=== PATIENT | female | born 1940 | race Caucasian/White ===

== ENCOUNTER 2018-09-28 14:40 | Observation (INO) | payer MEDICARE ==
[2018-09-28] MEDS ORDERED: Acetaminophen 500 MG TAB ONE (15:14)
[2018-09-28] MEDS ORDERED: Adacel (T-DAP) 0.5 ML SYRINGE ONE (15:14)
[2018-09-28] MEDS ORDERED: Sodium Chloride 0.9% 100 ML ONE ×2 (15:34→16:20)
[2018-09-28] MEDS ORDERED: cefTRIAXone\\ROCEPHIN 2 GM VIAL ONE (15:34)
[2018-09-28 15:35] LABS: #Basophils 0.1 thou/uL (0.0-0.2); #Lymphocytes 1.4 thou/uL (1.20-3.40); #Monocytes 1.1 thou/uL (0.11-0.59); #Neutrophils 14.5 thou/uL (1.40-6.50); %Basophils 0.5 % (0.0-1.0); %Eosinophils 0.1 % (0.0-10.0); %Lymphocytes 8.1 % (21.0-51.0); %Monocytes 6.5 % (0.0-10.0); %Neutrophils 84.9 % (42.0-75.0); Hemoglobin 12.8 g/dL (12.0-16.0); Mean Corpuscular HGB CONC 33.7 g/dL (32.0-36.0); Mean Corpuscular Hemoglobin 30.1 pg (27.0-31.0); Mean Corpuscular Volume 89.1 fL (78.0-98.0); Mean Platelet Volume 8.9 fL (7.4-10.4); Platelet Count 182 thou/uL (130-400); RBC Distribution Width 12.3 % (11.5-14.5); Red Blood Cell (RBC) Count 4.25 mill/uL (4.20-5.40); White Blood Cell (WBC) Count 17.1 thou/uL (4.8-10.8)
[2018-09-28 15:48] LABS: ALT (SGPT) 18 U/L (8-55); AST (SGOT) 24 U/L (5-34); Albumin 4.1 g/dL (3.4-4.8); Alkaline Phosphatase 69 U/L (40-150); Anion Gap 12 mmol/L (10-20); BUN (Urea Nitrogen) 17 mg/dL (9.8-20.1); Bilirubin, Total 0.8 mg/dL (0.2-1.2); Calc. Creatinine Clearance 0 mL/min (70-130); Calcium 9.6 mg/dL (7.8-10.44); Carbon Dioxide 27 mmol/L (23-31); Chloride 102 mmol/L (98-107); Estimated GFR-MDRD 64; Globulin 3.6 g/dL (2.4-3.5); Glucose 101 mg/dL (83-110); Potassium 3.4 mmol/L (3.5-5.1); Protein, Total 7.7 g/dL (6.0-8.3); Sodium 138 mmol/L (136-145)
--- NOTE | 2018-09-28 15:58 | RAD ---
FRadiograph chest one view: 09/28/2018 HISTORY: 77-year-old female with fever and chills COMPARISON: 07/21/2015. Previously, there was a focal infiltrate representing pneumonia at the medial right lung base. Curren tly, there is an area of increased attenuation, but this is much smaller. In the right upper lobe, there is a broad region of increased nodular interstitial densities. No card iomegaly or pulmonary edema. No pneumothorax. IMPRESSION: 1. Small area of increased density at the medial base of the right lung. This could represent chronic changes or recurrent early infiltrate. 2. Region at right upper lobe appears similar to 2016 study, representing chronic or recurrent subacu te pulmonary process.
[2018-09-28 16:15] LABS: Bilirubin Negative (Negative); Blood, Urine Moderate (Negative); Clarity Hazy (Clear); Glucose, Urine (Dipstick) Negative (Negative); Leukocyte Trace (Negative); Nitrite Negative (Negative); Protein, Urine (Dipstick) 100 mg/dL (Neg-Trace); Specific Gravity, Urine 1.025 (1.005-1.030); Urobilinogen 0.2 mg/dL (0.2-1.0); WBC/HPF 0-3 HPF (0-3); pH, Urine 5.5 (5.0-9.0)
[2018-09-28 16:16] LABS: Bacteria/HPF 2+ HPF (None Seen)
[2018-09-28] MEDS ORDERED: Azithromycin 500 MG VIAL ONE ×2 (16:19→16:29)
[2018-09-28] MEDS ORDERED: HYDROcodone/Acetaminophen 5/325 mg Tablet PO PRN ×2 (18:13)
[2018-09-28] MEDS ORDERED: Acetaminophen 325 MG TAB PO PRN (18:13)
[2018-09-29] MEDS ORDERED: Acetaminophen 650 MG Suppository PR PRN (02:37)
[2018-09-29] MEDS ORDERED: Ondansetron ODT 4 MG TAB PO PRN (02:37)
[2018-09-29 03:14] LABS: #Basophils 0.1 thou/uL (0.0-0.2); #Eosinphils 0.1 thou/uL (0.0-0.7); #Lymphocytes 1.6 thou/uL (1.20-3.40); #Monocytes 1.1 thou/uL (0.11-0.59); #Neutrophils 6.5 thou/uL (1.40-6.50); %Basophils 0.7 % (0.0-1.0); %Eosinophils 0.7 % (0.0-10.0); %Lymphocytes 17.1 % (21.0-51.0); %Monocytes 11.5 % (0.0-10.0); Hemoglobin 11.3 g/dL (12.0-16.0); Mean Corpuscular HGB CONC 33.3 g/dL (32.0-36.0); Mean Corpuscular Hemoglobin 30.8 pg (27.0-31.0); Mean Corpuscular Volume 92.5 fL (78.0-98.0); Mean Platelet Volume 8.5 fL (7.4-10.4); Platelet Count 154 thou/uL (130-400); RBC Distribution Width 12.5 % (11.5-14.5); Red Blood Cell (RBC) Count 3.67 mill/uL (4.20-5.40); White Blood Cell (WBC) Count 9.3 thou/uL (4.8-10.8)
[2018-09-29] MEDS ORDERED: Potassium Chloride 20 MEQ TAB PO SCH ×2 (03:15)
[2018-09-29 03:31] LABS: Anion Gap 12 mmol/L (10-20); BUN (Urea Nitrogen) 17 mg/dL (9.8-20.1); CK (CPK) 62 U/L (29-168); Calc. Creatinine Clearance 52 mL/min (70-130); Calcium 8.3 mg/dL (7.8-10.44); Carbon Dioxide 25 mmol/L (23-31); Chloride 106 mmol/L (98-107); Estimated GFR-MDRD 75; Glucose 90 mg/dL (83-110); Sodium 140 mmol/L (136-145)
[2018-09-29] MEDS: Sodium Chloride 0.9% 1,000 ML IV SCH (03:39)
--- NOTE | 2018-09-29 04:08 | HP ---
REASON FOR ADMISSION: Left leg cellulitis, secondary to cat bite. HISTORY OF PRESENT ILLNESS: Ms. Yepez is a very pleasant 77-year-old lady, who has a history of hypertension, presenting with left lower leg pain, swelling, and chills. She states that yesterday evening, she was bit by her cat in the left lower leg. She had pain that eventually subsided. By the time she went to bed, she began to feel generally unwell and fatigued. Throughout the night, she began to experience chills. This morning, she woke up feeling feverish and sought medical attention due to redness and pain in the leg. She states her cat is up-to-date on all her vaccinations. Due to unknown date of last tetanus, the patient received tetanus booster in the ED. She was started on IV antibiotics with Zithromax and ceftriaxone. She was also given 1 L of fluids. Since starting on the antibiotics, the patient states she notices she is starting to feel much better. She is less fatigued and drained. She is no longer experiencing generalized aching. The patient states that in addition to having chills and being unable to sleep because of feeling generally unwell last night, she also experienced urinary frequency. Urinalysis positive for leukocyte esterase and bacteria. We will request urine culture. REVIEW OF SYSTEMS: The patient denies having any headaches or dizziness. Denies having any nausea or vomiting. She has been tolerating oral intake. No abdominal pain or cramping. No urinary symptoms. She has not had any recent cough or hemoptysis. All other review of systems is negative. PAST MEDICAL HISTORY: Hypertension. PAST SURGICAL HISTORY: Bladder surgery. SOCIAL HISTORY: The patient denies any alcohol use, tobacco use, or illicit drug use. ALLERGIES: SULFA. CURRENT MEDICATIONS: Please . PHYSICAL EXAMINATION: GENERAL: The patient appears thin, well-developed, and in no acute distress. VITAL SIGNS: Temperature 97.9, pulse 72, respirations 18, blood pressure 136/60, and O2 saturation 96% on room air. HEENT: Normocephalic and atraumatic. Pupils are equal, round, and reactive to light. Sclerae are without icterus. Oropharynx is clear. NECK: Supple without lymphadenopathy. LUNGS: Clear to auscultation bilaterally without wheezes, rales, or rhonchi. CARDIAC: Regular rate and rhythm without audible murmurs, rubs, or gallops. ABDOMEN: Soft, nontender, nondistended. Normoactive bowel sounds present. EXTREMITIES: Notable for warm to right lower extremity. No significant swelling or erythema; however, she does have small patches of dry erythematous skin associated with her eczema. The patient states there has been improvement in erythema that was associated with the cellulitis since starting antibiotics. There is a puncture wound to the medial aspect of the lower leg at the mid calf region. No active bleeding or discharge. Normal range of motion in her ankle and knee. Slight tenderness and edema. NEUROLOGIC: Alert and oriented x3. LABORATORY DATA: White blood count elevated at 17.1, hemoglobin 12.8, hematocrit 37.9, platelets 182, neutrophils 14.5, and monocytes 1.1. Sodium 138, potassium 3.4, chloride 102, BUN 17, creatinine 0.86, GFR 64, glucose 101, lactic acid 0.7, calcium 9.6, total bilirubin 0.8, AST 24, ALT 18, alkaline phosphatase 69, and total protein 7.7. Urinalysis notable for 100 protein, trace ketones, moderate blood, leukocyte esterase, squamous epithelial cells, urine bacteria. DIAGNOSTIC DATA: Chest x-ray; 1. Small area of increased density at the medial base of the right lung. Could represent chronic changes of recurrent early infiltrate. 2. Region of the right upper lobe appears similar to 2016 study representing chronic recurrence of acute pulmonary process. IMPRESSION AND PLAN: Ms. Yepez is a very pleasant 77-year-old woman presenting with redness, pain, and swelling to the left lower leg following a cat bite. The patient has received tetanus booster and has been started on Zithromax as well as Rocephin. Following discussion with Dr. Aceves, we have decided to continue Rocephin and switch to vancomycin. I have also requested a tib-fib x-ray to rule out osteomyelitis. The patient is still quite tender to the area on palpation. She does, however, have notable clinical improvement with less generalized aching and malaise. She remains afebrile. Initial white count was elevated at 17, and we will continue to monitor. Lactic acid was normal. The patient did have a positive urinalysis for leukocyte esterase, no nitrites, 2+ bacteria. We will request urine culture. The patient did have blood cultures requested, which are pending. At this time, her pain is well controlled. She does have hypertension at baseline, and we will continue to monitor her blood pressure, which on admission was on the lower side at 97/52. Currently, it is 136/60. I will continue to monitor and if begins to rise, we will resume her home medications. Home medications still need to be verified and then reconciled. The patient is a full code status. Her surrogate decision maker is her daughter, Pretty Man. At present time, the patient is very eager to find out estimated length of stay as she has a home day care and would need to notify the parents if she will not be able to take care of the children on Sunday. The patient's case was discussed with Dr. Aceves, who agrees with plan of care as described above. Job ID: [id number]
--- NOTE | 2018-09-29 08:24 | RAD ---
FRadiograph left leg tibia-fibula 2 views: HISTORY: Cellulitis due to cat bite. Rule out osteomyelitis. FINDINGS: There is no evidence of periostitis, permeative lesion, fracture, radiopaque foreign body, or subcuta neous emphysema involving the tibia or fibula. IMPRESSION: Negative
[2018-09-29] MEDS: Famotidine 20 MG TAB PO SCH (08:55)
[2018-09-29] MEDS: Vancomycin HCl 1 GM in Premix Bag 1 BAG IVPB SCH (08:55)
[2018-09-29] MEDS: cefTRIAXone\\ROCEPHIN 1 GM in Sodium Chloride 0.9% 100 ML IVPB SCH (16:12)
[2018-09-30] MEDS: Sodium Chloride 0.9% 1,000 ML IV SCH (00:24)
[2018-09-30] MEDS: Vancomycin HCl 1 GM in Premix Bag 1 BAG IVPB SCH (08:06)
[2018-09-30] MEDS: Famotidine 20 MG TAB PO SCH (08:07)
[2018-09-30 10:47] VITALS: BMI 19.9
[2018-09-30 13:14] VITALS: BP 145/72; TEMP 97.7
[2018-09-30] MEDS: cefTRIAXone\\ROCEPHIN 1 GM in Sodium Chloride 0.9% 100 ML IVPB SCH (15:57)
--- NOTE | 2018-09-30 17:04 | DIS ---
DATE OF ADMISSION: 09/28/2018 DATE OF DISCHARGE: 09/30/2018 DISCHARGE DISPOSITION: Home. Follow up with primary care physician, Lawanda Dixon in 1 week. HISTORY: The patient was seen and examined on the day of discharge. Denies any new complaint. No chest pain, shortness of breath, or palpitations. DISCHARGE MEDICATIONS: 1. Augmentin 875 mg twice daily for next 5 days. 2. All other home medications were left unchanged. ALLERGIES: THE PATIENT IS ALLERGIC TO SULFA. BRIEF HOSPITAL COURSE: The patient is a 77-year-old white female with hypertension, presented to the hospital with left lower extremity pain, swelling, and chills after bitten by her cat. Please refer to the history and physical for further details. The patient was admitted to the hospital with a diagnosis of cellulitis after a cat bite. She was started on broad-spectrum antibiotics. She also received a tetanus shot in the emergency room. X-ray of the tibia-fibula was negative for acute findings. The patient has been afebrile throughout this hospital stay. The antibiotics will be switched to oral. A WBC count on admission was 17.1, that improved to 9.3 with antibiotics. She also had hypokalemia with potassium of 3.4 and 3.0. She received potassium supplementation. There were no labs ordered on the day of discharge. She will benefit from a basic metabolic profile next week. She appears stable for discharge. Erythema and tenderness have significantly improved. FINAL DIAGNOSES: 1. Left lower extremity cellulitis following a cat bite. 2. Hypertension. 3. Hypokalemia, replaced. 4. Chronic kidney disease stage 2. 5. Leukocytosis secondary to left lower extremity cellulitis following a cat bite, improved. PLAN: Plan of care was discussed with the patient in detail. She stated understanding. Job ID: [id number]
== END 2018-09-30 17:29 | disposition home or self-care (01) ==
LOC: SCSER 14:40 → T4-B 17:51
PROVIDERS: ADMIT Internal Medicine; ATTEND Internal Medicine
DX: S81.852A Open bite, left lower leg, initial encounter (principal); L03.116 Cellulitis of left lower limb; I12.9 Hypertensive chronic kidney disease with stage 1 through stage 4 chronic kidney disease, or unspecified chronic kidney disease; N18.2 Chronic kidney disease, stage 2 (mild); E87.6 Hypokalemia; Z79.810 Long term (current) use of selective estrogen receptor modulators (SERMs); Z79.899 Other long term (current) drug therapy; Z88.2 Allergy status to sulfonamides; W55.01XA Bitten by cat, initial encounter
CPT/HCPCS: 71045; 73590; 80048; 80053; 82550; 83605; 85025 ×2; 87040; 90471; 90715; 96361 ×2; 96365; 96366; 96367 ×2; 99285; G0378 ×2; 36415; 81003; 81015; J0456; J0696; J3370; J7050

== ENCOUNTER 2020-06-12 08:30 | Emergency (ER) | payer MEDICARE ==
[2020-06-12] MEDS ORDERED: Famotidine/PF 20 mg/2ml Vial ONE (08:49)
[2020-06-12] MEDS ORDERED: methylPREDNISolone Sod Succ/PF 125 MG/2 ML VIAL ONE (08:49)
[2020-06-12] MEDS ORDERED: diphenhydrAMINE 50 MG/ML VIAL ONE (08:57)
--- NOTE | 2020-06-12 10:26 | CT ---
CT OF BRAIN PERFORMED WITHOUT CONTRAST ENHANCEMENT: HISTORY: The patient has a history of hypertension. Noted swelling to jaw and tongue region. FINDINGS: There is generalized ventricular and sulcal prominence with decreased attenuation to the periventricu lar white matter. There are no signs of intracerebral hemorrhage or extraaxial fluid collections. Mastoid air cells are clear. There is complete opacification of the left sphenoid air cells and comp lete opacification of the visualized portions of the ethmoid air cells. IMPRESSION: 1. Atrophy with chronic white matter change. 2. Extensive sinus disease. POS: ALEXA
[2020-06-12 16:32] LABS: SARS-CoV-2 MS2 Positive; SARS-CoV-2 N Gene Negative; SARS-CoV-2 S Gene Negative; SARS-CoV-2 by NAA Not Detected (NotDetected); SARS-CoV-2 orf1ab Negative
== END 2020-06-12 10:25 | disposition home or self-care (01) ==
LOC: ERS 08:30
DX: T78.3XXA Angioneurotic edema, initial encounter (principal); T46.4X5A Adverse effect of angiotensin-converting-enzyme inhibitors, initial encounter; I10 Essential (primary) hypertension; Z79.899 Other long term (current) drug therapy
CPT/HCPCS: 70450; 96374; 96375; 99284; U0003; 87635; J1200; J2930; S0028

== ENCOUNTER 2021-12-09 12:57 | Outpatient (CLI) | payer MEDICARE ==
[~2021-12-09 12:57] MED LIST: Iopamidol 370 76% 100 ML VIAL ONE
== END 2021-12-09 12:58 | disposition home or self-care (01) ==
LOC: BICCT 12:57
PROVIDERS: ATTEND Internal Medicine Hematology & Oncology
DX: C18.3 Malignant neoplasm of hepatic flexure (principal)
CPT/HCPCS: 71260; Q9967

== ENCOUNTER 2021-12-14 07:31 | Observation (INO) | payer MEDICARE ==
[2021-12-14 08:08] LABS: #Monocytes 0.8 thou/uL (0.11-0.59); #Neutrophils 4.4 thou/uL (1.40-6.50); %Basophils 0.5 % (0.0-1.0); %Eosinophils 0.7 % (0.0-10.0); %Lymphocytes 15.8 % (21.0-51.0); %Monocytes 13.2 % (0.0-10.0); %Neutrophils 69.8 % (42.0-75.0); Hemoglobin 10.2 g/dL (12.0-16.0); Mean Corpuscular HGB CONC 32.3 g/dL (32.0-36.0); Mean Corpuscular Hemoglobin 25.8 pg (27.0-31.0); Mean Platelet Volume 8.3 fL (7.4-10.4); Platelet Count 316 thou/uL (130-400); RBC Distribution Width 15.2 % (11.5-14.5); Red Blood Cell (RBC) Count 3.96 mill/uL (4.20-5.40); White Blood Cell (WBC) Count 6.3 thou/uL (4.8-10.8)
[2021-12-14 08:29] LABS: ALT (SGPT) 16 U/L (8-55); AST (SGOT) 19 U/L (5-34); Albumin 3.5 g/dL (3.4-4.8); Alkaline Phosphatase 64 U/L (40-110); Anion Gap 16 mmol/L (10-20); BUN (Urea Nitrogen) 36 mg/dL (9.8-20.1); Bilirubin, Total 0.5 mg/dL (0.2-1.2); Calc. Creatinine Clearance 0 mL/min (70-130); Calcium 8.8 mg/dL (7.8-10.44); Carbon Dioxide 27 mmol/L (23-31); Chloride 101 mmol/L (98-107); Globulin 3.4 g/dL (2.4-3.5); Glucose 113 mg/dL (83-110); Protein, Total 6.9 g/dL (5.8-8.1); Sodium 141 mmol/L (136-145)
[2021-12-14] MEDS ORDERED: Morphine 4 MG/ML VIAL ONE (10:18)
[2021-12-14] MEDS ORDERED: Potassium Chloride 20 MEQ TAB ONE (10:18)
[2021-12-14] MEDS ORDERED: Ondansetron PF 4 MG/2 ML Vial ONE (10:26)
[2021-12-14 10:27] LABS: Bilirubin Negative (Negative); Blood, Urine Negative (Negative); Glucose, Urine (Dipstick) Normal (Negative); Ketone, Urine Negative (Negative); Leukocyte 75 Leu/uL (Negative); Nitrite Negative (Negative); Protein, Urine (Dipstick) 20 mg/dL (Neg-Trace); RBC/HPF 0-3 HPF (0-3); Specific Gravity, Urine 1.021 (1.002-1.036); Squamous Epithelial 0-3 HPF (0-3); Urobilinogen Normal mg/dL (Less than 2); pH, Urine 5.5 (5.0-9.0)
[2021-12-14 10:28] LABS: Bacteria/HPF 1+ HPF (None Seen); Clarity Cloudy (Clear)
[2021-12-14 15:16] VITALS: BMI 17.9
[2021-12-14] MEDS ORDERED: NS 0.9% w/ 40 MEQ KCL 1,000 ML IV SCH (15:30)
[2021-12-14 18:53] LABS: SARS-CoV-2 NAA Rapid Test Not Detected (NotDetected)
[2021-12-14] MEDS ORDERED: traMADol HCl 50 MG TAB PO PRN (19:10)
[2021-12-14] MEDS ORDERED: hydrALAZINE 20 MG/ML VIAL SLOW IVP PRN (19:10)
[2021-12-14] MEDS ORDERED: Potassium Chloride 20 MEQ TAB PO SCH (19:15)
[2021-12-14] MEDS ORDERED: Lactated Ringer's 500 ML IV SCH (19:15)
[2021-12-14] MEDS ORDERED: Famotidine 20 MG TAB PO SCH (21:00)
[2021-12-14] MEDS ORDERED: Enoxaparin Sodium 30 MG/0.3 ML SYRINGE SC SCH (21:00)
[2021-12-14] MEDS: Citrucel 500 MG TAB PO SCH (21:11)
[2021-12-14] MEDS: Potassium Chloride 20 MEQ in Lactated Ringer's 1,000 ML IV SCH (22:51)
[2021-12-15] MEDS: Potassium Chloride 20 MEQ in Lactated Ringer's 1,000 ML IV SCH (05:00)
[2021-12-15 05:43] LABS: #Eosinphils 0.1 thou/uL (0.0-0.7); #Lymphocytes 1.1 thou/uL (1.20-3.40); #Monocytes 0.7 thou/uL (0.11-0.59); #Neutrophils 2.7 thou/uL (1.40-6.50); %Basophils 0.4 % (0.0-1.0); %Eosinophils 1.6 % (0.0-10.0); %Lymphocytes 24.2 % (21.0-51.0); %Monocytes 14.9 % (0.0-10.0); %Neutrophils 58.9 % (42.0-75.0); Hemoglobin 8.8 g/dL (12.0-16.0); Mean Corpuscular Hemoglobin 25.6 pg (27.0-31.0); Mean Corpuscular Volume 82.6 fL (78.0-98.0); Mean Platelet Volume 8.6 fL (7.4-10.4); Platelet Count 227 thou/uL (130-400); RBC Distribution Width 15.3 % (11.5-14.5); Red Blood Cell (RBC) Count 3.46 mill/uL (4.20-5.40); White Blood Cell (WBC) Count 4.6 thou/uL (4.8-10.8)
[2021-12-15 08:08] LABS: Calcium 8.4 mg/dL (7.8-10.44); Chloride 108 mmol/L (98-107); Sodium 139 mmol/L (136-145)
[2021-12-15 08:09] LABS: Glucose 83 mg/dL (83-110)
[2021-12-15 08:10] LABS: Anion Gap 12 mmol/L (10-20); Carbon Dioxide 24 mmol/L (23-31)
[2021-12-15 08:13] LABS: BUN (Urea Nitrogen) 16 mg/dL (9.8-20.1)
[2021-12-15] MEDS: Citrucel 500 MG TAB PO SCH (08:27)
[2021-12-15 08:29] LABS: Calc. Creatinine Clearance 39 mL/min (70-130); Potassium 4.9 mmol/L (3.5-5.1)
[2021-12-15] MEDS ORDERED: Saccharomyces boulardii 250 MG CAP PO SCH (09:00)
[2021-12-15] MEDS ORDERED: Propranolol HCl LA 80 MG CAP PO SCH (09:00)
[2021-12-15] MEDS ORDERED: Amlodipine 10 MG TAB PO SCH (09:00)
[2021-12-15 11:35] VITALS: BP 125/67; TEMP 98.2
[2021-12-15] MEDS ORDERED: Vancomycin 25 MG/ML Oral SOLN PO SCH (12:00)
== END 2021-12-15 15:57 | disposition home or self-care (01) ==
LOC: ERS 07:31 → T4-B 14:37
PROVIDERS: ADMIT Specialist; ATTEND Specialist
DX: A04.72 Enterocolitis due to Clostridium difficile, not specified as recurrent (principal); E87.6 Hypokalemia; E86.0 Dehydration; I12.9 Hypertensive chronic kidney disease with stage 1 through stage 4 chronic kidney disease, or unspecified chronic kidney disease; N18.9 Chronic kidney disease, unspecified; N17.9 Acute kidney failure, unspecified; Z79.810 Long term (current) use of selective estrogen receptor modulators (SERMs); Z79.899 Other long term (current) drug therapy; Z88.2 Allergy status to sulfonamides; Z90.49 Acquired absence of other specified parts of digestive tract; Z20.822 Contact with and (suspected) exposure to COVID-19
CPT/HCPCS: 74176; 80048; 80053; 83690; 85025 ×2; 87324; 87449; 93005; U0002; 36415; 81003; 81015; 96372; G0378; J1650; J2270; J2405; J3480; J7120

== ENCOUNTER 2022-08-18 09:48 | Emergency (ER) | payer MEDICARE, OTHER ==
[2022-08-18 10:36] LABS: #Eosinphils 0.1 thou/uL (0.0-0.7); #Lymphocytes 1.6 thou/uL (1.20-3.40); #Monocytes 0.6 thou/uL (0.11-0.59); #Neutrophils 8.3 thou/uL (1.40-6.50); %Basophils 0.4 % (0.0-1.0); %Eosinophils 0.8 % (0.0-10.0); %Lymphocytes 15.4 % (21.0-51.0); %Monocytes 5.4 % (0.0-10.0); Hemoglobin 14.6 g/dL (12.0-16.0); Mean Corpuscular HGB CONC 33.4 g/dL (32.0-36.0); Mean Corpuscular Hemoglobin 30.2 pg (27.0-31.0); Mean Corpuscular Volume 90.3 fl (78.0-98.0); Mean Platelet Volume 9.2 fL (7.4-10.4); Platelet Count 208 10x3/uL (130-400); RBC Distribution Width 13.4 % (11.5-14.5); Red Blood Cell (RBC) Count 4.83 mill/uL (4.20-5.40); White Blood Cell (WBC) Count 10.6 10x3/uL (4.8-10.8)
[2022-08-18 10:39] LABS: Bacteria/HPF None Seen HPF (None Seen); Bilirubin Negative (Negative); Blood, Urine Trace (Negative); Clarity Clear (Clear); Glucose, Urine (Dipstick) Normal (Negative); Ketone, Urine Negative (Negative); Leukocyte Negative Leu/uL (Negative); Nitrite Negative (Negative); Protein, Urine (Dipstick) 200 mg/dL (Neg-Trace); RBC/HPF 0-3 HPF (0-3); Specific Gravity, Urine 1.015 (1.002-1.036); Squamous Epithelial 0-3 HPF (0-3); Urobilinogen Normal mg/dL (Less than 2); pH, Urine 6.5 (5.0-9.0)
[2022-08-18 10:59] LABS: ALT (SGPT) 21 U/L (8-55); AST (SGOT) 31 U/L (5-34); Albumin 4.2 g/dL (3.4-4.8); Alkaline Phosphatase 86 U/L (40-110); Anion Gap 16 mmol/L (10-20); BUN (Urea Nitrogen) 33 mg/dL (9.8-20.1); Bilirubin, Total 0.6 mg/dL (0.2-1.2); Calc. Creatinine Clearance 0 mL/min (70-130); Calcium 10.3 mg/dL (7.8-10.44); Carbon Dioxide 24 mmol/L (23-31); Chloride 101 mmol/L (98-107); Estimated GFR 51; Globulin 4.6 g/dL (2.4-3.5); Glucose 127 mg/dL (83-110); Potassium 4.3 mmol/L (3.5-5.1); Protein, Total 8.8 g/dL (5.8-8.1); Sodium 137 mmol/L (136-145)
[2022-08-18] MEDS ORDERED: cefTRIAXone\\ROCEPHIN 1 GM VIAL ONE (12:52)
[2022-08-18 13:45] LABS: SARS-CoV-2 NAA Rapid Test Not Detected (NotDetected)
== END 2022-08-18 14:00 | disposition home or self-care (01) ==
LOC: ERS 09:48
DX: N39.0 Urinary tract infection, site not specified (principal); I10 Essential (primary) hypertension
CPT/HCPCS: 80053; 83605; 84484; 85025; 87040; 87086; 93005; 96361; 96374; 99284; U0002; 36415; 81003; 81015; J0696

== ENCOUNTER 2023-04-25 18:38 | Inpatient (IN) | payer MEDICARE ==
[2023-04-25] MEDS ORDERED: Morphine 4 MG/ML VIAL ONE (19:36)
[2023-04-25] MEDS ORDERED: Ondansetron PF 4 MG/2 ML Vial ONE (19:37)
[2023-04-25 19:50] LABS: Bilirubin Negative (Negative); Blood, Urine 1+ (Negative); CAUTI Indications for Culture Pelvic or flank pain; Clarity Clear (Clear); Glucose, Urine (Dipstick) 100 mg/dL (Negative); Ketone, Urine Negative (Negative); Leukocyte Negative Leu/uL (Negative); Nitrite Negative (Negative); Protein, Urine (Dipstick) 50 mg/dL (Neg-Trace); Specific Gravity, Urine 1.016 (1.002-1.036); Squamous Epithelial 0-3 HPF (0-3); Urobilinogen Normal mg/dL (Less than 2); WBC/HPF 0-3 HPF (0-3); Yeast-Budding Rare HPF (None Seen)
[2023-04-25 19:53] LABS: #Eosinphils 0.1 thou/uL (0.0-0.7); #Monocytes 0.7 thou/uL (0.11-0.59); #Neutrophils 13.2 thou/uL (1.40-6.50); %Basophils 0.3 % (0.0-1.0); %Eosinophils 0.5 % (0.0-10.0); %Lymphocytes 7.2 % (21.0-51.0); %Monocytes 4.8 % (0.0-10.0); %Neutrophils 86.5 % (42.0-75.0); Mean Corpuscular HGB CONC 34.1 g/dL (32.0-36.0); Mean Corpuscular Volume 90.9 fl (78.0-98.0); Mean Platelet Volume 11.5 fL (7.4-10.4); Platelet Count 216 10x3/uL (130-400); RBC Distribution Width 13.1 % (11.5-14.5); Red Blood Cell (RBC) Count 4.51 mill/uL (4.20-5.40); White Blood Cell (WBC) Count 15.2 10x3/uL (4.8-10.8)
[2023-04-25 20:00] LABS: Bacteria/HPF Rare-Few HPF (None Seen)
[2023-04-25 20:01] LABS: Urine Culture Reflex No No
[2023-04-25 20:04] LABS: PTT 30.1 sec (22.9-36.1); Prothrombin Time 13.1 sec (12.0-14.7)
[2023-04-25 20:21] LABS: ALT (SGPT) 24 U/L (8-55); AST (SGOT) 34 U/L (5-34); Albumin 4.5 g/dL (3.4-4.8); Alkaline Phosphatase 84 U/L (40-110); Anion Gap 15 mmol/L (10-20); BUN (Urea Nitrogen) 41 mg/dL (9.8-20.1); Bilirubin, Total 0.2 mg/dL (0.2-1.2); Calc. Creatinine Clearance 0 mL/min (70-130); Calcium 9.9 mg/dL (7.8-10.44); Carbon Dioxide 27 mmol/L (23-31); Chloride 103 mmol/L (98-107); Estimated GFR 39; Globulin 4.1 g/dL (2.4-3.5); Glucose 157 mg/dL (83-110); Potassium 3.9 mmol/L (3.5-5.1); Protein, Total 8.6 g/dL (5.8-8.1); Sodium 141 mmol/L (136-145)
[2023-04-25] MEDS ORDERED: Morphine 4 MG/ML VIAL SLOW IVP PRN (20:42)
[2023-04-25] MEDS ORDERED: Ondansetron PF 4 MG/2 ML Vial IVP PRN (20:45)
[2023-04-25] MEDS ORDERED: Ondansetron ODT 4 MG TAB SL PRN (20:45)
[2023-04-25] MEDS ORDERED: Ipratropium/Albuterol 3 ML NEB NEB PRN (22:26)
[2023-04-25] MEDS ORDERED: traMADol HCl 50 MG TAB PO PRN (22:31)
[2023-04-25] MEDS ORDERED: Cyclobenzaprine 10 MG TAB PO PRN (22:31)
[2023-04-25] MEDS ORDERED: Acetaminophen 325 MG TAB PO SCH (22:45)
[2023-04-25] MEDS: D5 1/2 NS w/20 mEq KCL 1,000 ML IV SCH (23:38)
[2023-04-25 23:45] VITALS: BMI 19.6
[2023-04-25] MEDS ORDERED: Acetaminophen 500 MG TAB PO SCH (23:59)
[2023-04-25] MEDS ORDERED: traMADol HCl 50 MG TAB PO SCH (23:59)
[2023-04-26] MEDS: Acetaminophen/Codeine 30-300mg Tablet PO SCH ×5 (00:07→22:37)
[2023-04-26] MEDS: Acetaminophen 325 MG TAB PO SCH ×5 (00:07→23:33)
[2023-04-26] MEDS: Sodium Chloride 0.9% 1,000 ML IV SCH ×4 (00:08→23:33)
[2023-04-26] MEDS: D5 1/2 NS w/20 mEq KCL 1,000 ML IV SCH (05:10)
[2023-04-26 05:41] LABS: #Eosinphils 0.2 thou/uL (0.0-0.7); #Monocytes 0.8 thou/uL (0.11-0.59); #Neutrophils 10.4 thou/uL (1.40-6.50); %Basophils 0.2 % (0.0-1.0); %Lymphocytes 6.6 % (21.0-51.0); %Monocytes 6.4 % (0.0-10.0); %Neutrophils 84.3 % (42.0-75.0); Hematocrit 35.8 % (36.0-47.0); Hemoglobin 12.1 g/dL (12.0-16.0); Mean Corpuscular HGB CONC 33.8 g/dL (32.0-36.0); Mean Corpuscular Hemoglobin 31.3 pg (27.0-31.0); Mean Corpuscular Volume 92.7 fl (78.0-98.0); Mean Platelet Volume 11.8 fL (7.4-10.4); Platelet Count 152 10x3/uL (130-400); RBC Distribution Width 13.4 % (11.5-14.5); Red Blood Cell (RBC) Count 3.86 mill/uL (4.20-5.40); White Blood Cell (WBC) Count 12.3 10x3/uL (4.8-10.8)
[2023-04-26 05:54] LABS: INR-International Normal Ratio 1.1; PTT 32.6 sec (22.9-36.1); Prothrombin Time 14.1 sec (12.0-14.7)
[2023-04-26 06:05] LABS: Anion Gap 11 mmol/L (10-20); BUN (Urea Nitrogen) 28 mg/dL (9.8-20.1); Calc. Creatinine Clearance 39 mL/min (70-130); Calcium 8.9 mg/dL (7.8-10.44); Carbon Dioxide 24 mmol/L (23-31); Chloride 107 mmol/L (98-107); Estimated GFR 61; Glucose 112 mg/dL (83-110); Potassium 3.8 mmol/L (3.5-5.1); Sodium 138 mmol/L (136-145)
[2023-04-26] MEDS ORDERED: CEFAZOLIN 2 GM in Sodium Chloride 0.9% 100 ML IVPB SCH (07:45)
[2023-04-26] MEDS: Famotidine/PF 20 mg/2ml Vial SLOW IVP SCH (08:15)
[2023-04-26] MEDS: Amlodipine 10 MG TAB PO SCH (08:15)
[2023-04-26] MEDS: Polyethylene Glycol 3350 17 GM Packet PO SCH (08:15)
[2023-04-26] MEDS: Senokot S 8.6-50 MG TAB PO SCH ×2 (08:15→22:16)
[2023-04-26] MEDS ORDERED: Famotidine/PF 20 mg/2ml Vial SLOW IVP SCH (09:00)
[2023-04-26] MEDS ORDERED: Sodium Chloride 0.9% 100 ML ONE (18:20)
[2023-04-26] MEDS ORDERED: CEFAZOLIN 2 GM VIAL ONE (18:20)
[2023-04-26] MEDS ORDERED: fentaNYL 50 mcg/mL 1 mL Vial ONE ×3 (18:26→20:33)
[2023-04-26] MEDS ORDERED: Famotidine/PF 20 mg/2ml Vial ONE ×2 (18:26→20:30)
[2023-04-26] MEDS ORDERED: Vasopressin 20 UNITS/ML VIAL ONE (18:26)
[2023-04-26] MEDS ORDERED: Lidocaine 1% PF 5 ML VIAL ONE (18:46)
[2023-04-26] MEDS ORDERED: Rocuronium Bromide 10 MG/ML (10ML VIAL) ONE (18:46)
[2023-04-26] MEDS ORDERED: PROPOFOL 200 MG/20 ML VIAL ONE (18:46)
[2023-04-26] MEDS ORDERED: Ketorolac Tromethamine 30 MG/ML VIAL ONE (18:46)
[2023-04-26] MEDS ORDERED: Dexamethasone 20 MG/5 ML VIAL ONE (18:46)
[2023-04-26] MEDS ORDERED: NEOSTIGMINE 3 MG/3 ML SYR 3 MG/3 ML SYRINGE ONE (18:46)
[2023-04-26] MEDS ORDERED: Ondansetron PF 4 MG/2 ML Vial ONE ×2 (18:46→20:09)
[2023-04-26] MEDS ORDERED: Glycopyrrolate 0.2 MG/ML 5 ML SYRINGE ONE (18:46)
[2023-04-26] MEDS ORDERED: Promethazine HCl 25 MG/ML VIAL IM PRN (19:44)
[2023-04-26] MEDS ORDERED: Ondansetron HCl/PF 4 MG/2 ML Vial IVP PRN (19:44)
[2023-04-26] MEDS ORDERED: diphenhydrAMINE 50 MG/ML VIAL ONE (20:54)
[2023-04-26] MEDS: CEFAZOLIN 2 GM in Sodium Chloride 0.9% 100 ML IVPB SCH (23:32)
[2023-04-27] MEDS: Acetaminophen 325 MG TAB PO SCH ×3 (05:50→17:13)
[2023-04-27] MEDS: Acetaminophen/Codeine 30-300mg Tablet PO SCH ×4 (05:51→21:13)
[2023-04-27] MEDS ORDERED: Morphine 2 MG/ML VIAL SLOW IVP PRN (06:57)
[2023-04-27] MEDS ORDERED: Lactated Ringer's 1,000 ML IV SCH (07:00)
[2023-04-27] MEDS: CEFAZOLIN 2 GM in Sodium Chloride 0.9% 100 ML IVPB SCH ×2 (08:49→16:00)
[2023-04-27] MEDS: Senokot S 8.6-50 MG TAB PO SCH ×2 (08:50→21:08)
[2023-04-27] MEDS: Polyethylene Glycol 3350 17 GM Packet PO SCH (08:50)
[2023-04-27] MEDS: Famotidine/PF 20 mg/2ml Vial SLOW IVP SCH (08:50)
[2023-04-27] MEDS: Amlodipine 10 MG TAB PO SCH (08:50)
[2023-04-27] MEDS: Raloxifene 60 MG TAB PO SCH (08:52)
[2023-04-27] MEDS: Propranolol HCl LA 80 MG CAP PO SCH (12:08)
[2023-04-28] MEDS: Acetaminophen 325 MG TAB PO SCH ×5 (00:10→23:44)
[2023-04-28] MEDS: Acetaminophen/Codeine 30-300mg Tablet PO SCH ×4 (04:08→21:15)
[2023-04-28 05:40] LABS: #Eosinphils 0.1 thou/uL (0.0-0.7); #Monocytes 1.1 thou/uL (0.11-0.59); #Neutrophils 13.6 thou/uL (1.40-6.50); %Basophils 0.1 % (0.0-1.0); %Eosinophils 0.3 % (0.0-10.0); %Monocytes 6.8 % (0.0-10.0); Hematocrit 27.1 % (36.0-47.0); Hemoglobin 9.2 g/dL (12.0-16.0); Mean Corpuscular HGB CONC 33.9 g/dL (32.0-36.0); Mean Corpuscular Hemoglobin 31.2 pg (27.0-31.0); Mean Corpuscular Volume 91.9 fl (78.0-98.0); Platelet Count 133 10x3/uL (130-400); RBC Distribution Width 13.5 % (11.5-14.5); Red Blood Cell (RBC) Count 2.95 mill/uL (4.20-5.40)
[2023-04-28 06:05] LABS: Anion Gap 13 mmol/L (10-20); BUN (Urea Nitrogen) 15 mg/dL (9.8-20.1); Calc. Creatinine Clearance 37 mL/min (70-130); Calcium 8.1 mg/dL (7.8-10.44); Carbon Dioxide 27 mmol/L (23-31); Chloride 103 mmol/L (98-107); Estimated GFR 57; Glucose 114 mg/dL (83-110); Potassium 3.5 mmol/L (3.5-5.1); Sodium 139 mmol/L (136-145)
[2023-04-28] MEDS: Aspirin 81 mg Enteric Coated Tablet PO SCH ×2 (08:41→21:15)
[2023-04-28] MEDS: Propranolol HCl LA 80 MG CAP PO SCH (08:41)
[2023-04-28] MEDS: Raloxifene 60 MG TAB PO SCH (08:41)
[2023-04-28] MEDS: Famotidine/PF 20 mg/2ml Vial SLOW IVP SCH (08:41)
[2023-04-28] MEDS: Amlodipine 10 MG TAB PO SCH (08:41)
[2023-04-28] MEDS ORDERED: PROPRANOLOL HCL 160 MG PO SCH (09:00)
[2023-04-28] MEDS: Senokot S 8.6-50 MG TAB PO SCH ×2 (09:26→21:14)
[2023-04-28] MEDS: Polyethylene Glycol 3350 17 GM Packet PO SCH (09:26)
[2023-04-29] MEDS: Acetaminophen 325 MG TAB PO SCH ×4 (00:15→18:09)
[2023-04-29] MEDS: Acetaminophen/Codeine 30-300mg Tablet PO SCH ×4 (05:00→21:46)
[2023-04-29 07:38] LABS: #Basophils 0.1 thou/uL (0.0-0.2); #Eosinphils 0.3 thou/uL (0.0-0.7); #Monocytes 1.2 thou/uL (0.11-0.59); #Neutrophils 8.5 thou/uL (1.40-6.50); %Basophils 0.4 % (0.0-1.0); %Eosinophils 2.8 % (0.0-10.0); %Lymphocytes 10.2 % (21.0-51.0); %Monocytes 10.2 % (0.0-10.0); %Neutrophils 75.2 % (42.0-75.0); Hematocrit 31.6 % (36.0-47.0); Hemoglobin 10.5 g/dL (12.0-16.0); Mean Corpuscular HGB CONC 33.2 g/dL (32.0-36.0); Mean Corpuscular Hemoglobin 30.6 pg (27.0-31.0); Mean Corpuscular Volume 92.1 fl (78.0-98.0); Mean Platelet Volume 11.7 fL (7.4-10.4); Platelet Count 158 10x3/uL (130-400); RBC Distribution Width 13.5 % (11.5-14.5); Red Blood Cell (RBC) Count 3.43 mill/uL (4.20-5.40); White Blood Cell (WBC) Count 11.3 10x3/uL (4.8-10.8)
[2023-04-29] MEDS: Amlodipine 10 MG TAB PO SCH (09:27)
[2023-04-29] MEDS: Aspirin 81 mg Enteric Coated Tablet PO SCH ×2 (09:28→21:44)
[2023-04-29] MEDS: Raloxifene 60 MG TAB PO SCH (09:29)
[2023-04-29] MEDS: Propranolol HCl LA 80 MG CAP PO SCH (09:29)
[2023-04-29] MEDS: Famotidine/PF 20 mg/2ml Vial SLOW IVP SCH (09:30)
[2023-04-29] MEDS: Polyethylene Glycol 3350 17 GM Packet PO SCH (09:34)
[2023-04-30] MEDS: Acetaminophen 325 MG TAB PO SCH ×3 (01:11→12:36)
[2023-04-30] MEDS ORDERED: Ondansetron ODT 4 MG TAB PO PRN (04:25)
[2023-04-30] MEDS ORDERED: Mag-Al 1200 mg/1200 mg/30 ML UDCUP PO PRN (04:25)
[2023-04-30] MEDS: Acetaminophen/Codeine 30-300mg Tablet PO SCH (06:03)
[2023-04-30] MEDS ORDERED: Acetaminophen/Codeine 30-300mg Tablet PO PRN (08:31)
[2023-04-30] MEDS: Amlodipine 10 MG TAB PO SCH (09:42)
[2023-04-30] MEDS: Famotidine/PF 20 mg/2ml Vial SLOW IVP SCH (09:42)
[2023-04-30] MEDS: Aspirin 81 mg Enteric Coated Tablet PO SCH (09:42)
[2023-04-30] MEDS: Polyethylene Glycol 3350 17 GM Packet PO SCH (09:42)
[2023-04-30] MEDS: Raloxifene 60 MG TAB PO SCH (09:44)
[2023-04-30] MEDS: Propranolol HCl LA 80 MG CAP PO SCH (09:44)
[2023-04-30 12:08] VITALS: TEMP 98.5
[2023-04-30 15:50] VITALS: BP 107/56
== END 2023-04-30 18:02 | disposition home health service (06) | DRG 522 ==
LOC: ERS 18:38 → SURG B 20:32 → SURG A 04-28 19:17
PROVIDERS: ADMIT Orthopaedic Surgery; ATTEND Orthopaedic Surgery
PROC: 0SRR0JA Replacement of Right Hip Joint, Femoral Surface with Synthetic Substitute, Uncemented, Open Approach (ICD-10-PCS; principal; 2023-04-26)
DX: S72.011A Unspecified intracapsular fracture of right femur, initial encounter for closed fracture (principal); N17.9 Acute kidney failure, unspecified; M81.0 Age-related osteoporosis without current pathological fracture; W19.XXXA Unspecified fall, initial encounter; N18.9 Chronic kidney disease, unspecified; I12.9 Hypertensive chronic kidney disease with stage 1 through stage 4 chronic kidney disease, or unspecified chronic kidney disease; Z90.710 Acquired absence of both cervix and uterus; Z90.49 Acquired absence of other specified parts of digestive tract; Z98.890 Other specified postprocedural states; Z88.8 Allergy status to other drugs, medicaments and biological substances; Z88.1 Allergy status to other antibiotic agents; Z88.2 Allergy status to sulfonamides; Y92.009 Unspecified place in unspecified non-institutional (private) residence as the place of occurrence of the external cause
CPT/HCPCS: 36415; 71045; 72170; 80048; 80053; 81001; 85025; 85610; 85730; 87040; 93005; C1776; J1100; J1200; J1885; J2270; J2405; J2704; J3010; J3490; J7050; J7120; Q0162; S0028